=== PATIENT | female | born 1965 | race Hispanic/Latino ===

== ENCOUNTER 2019-08-20 00:48 | Emergency (ER) | payer BC ==
[2019-08-20] MEDS ORDERED: Albuterol Sulfate 2.5 mg/0.5 ml Neb ONE ×2 (00:55→03:15)
[2019-08-20] MEDS ORDERED: Albuterol Sulfate 2.5 mg/3 ml Neb ONE ×2 (00:55→03:15)
[2019-08-20] MEDS ORDERED: predniSONE 20 MG TAB ONE (01:21)
== END 2019-08-20 05:05 | disposition home or self-care (01) ==
LOC: ERS 00:48
DX: J45.901 Unspecified asthma with (acute) exacerbation (principal); F32.9 Major depressive disorder, single episode, unspecified; Z79.84 Long term (current) use of oral hypoglycemic drugs; Z79.899 Other long term (current) drug therapy
CPT/HCPCS: 94640; J7512; J7611; J7620